=== PATIENT | female | born 1995 | race Two or more races ===

== ENCOUNTER 2021-12-15 19:53 | Emergency (ER) | payer SELFPAY ==
[~2021-12-15] VITALS: Ht 167.6 cm; Wt 68.2 kg
[2021-12-15 19:55] VITALS: BP 127/81
== END 2021-12-15 20:28 | disposition left against medical advice (07) ==
LOC: M ED 19:53
DX: Z53.21 Procedure and treatment not carried out due to patient leaving prior to being seen by health care provider (principal)

== ENCOUNTER → 2022-02-27 | Outpatient (CLI) | payer SELFPAY | LOC: M SOG 15:09 | PROVIDERS: ATTEND Orthopaedic Surgery Hand Surgery | DX: M25.531 Pain in right wrist (principal) ==

== ENCOUNTER 2022-06-13 10:34 | Emergency (ER) | payer OTHER, SELFPAY ==
[~2022-06-13] VITALS: Ht 167.6 cm; Wt 68.4 kg
[2022-06-13] MEDS ORDERED: CARB15DR37 (10:41)
[2022-06-13] MEDS ORDERED: OLOP5DRO17 (10:41)
[2022-06-13] MEDS ORDERED: FLUO40CA (10:41)
[2022-06-13] MEDS ORDERED: ONDA4TAB6 (10:41)
[2022-06-13] MEDS ORDERED: CEFD300C41 (10:41)
[2022-06-13] MEDS ORDERED: RIME75TA (10:41)
[2022-06-13] MEDS ORDERED: diphenhydrAMINE 50MG/ML VIAL IV ONE (13:20)
[2022-06-13] MEDS ORDERED: METOCLOPRAMIDE INJ 10MG/2ML VIAL IV ONE (13:20)
[2022-06-13] MEDS ORDERED: NS 1,000 ML IV ONE (14:35)
[2022-06-13] MEDS ORDERED: KETOROLAC 30 MG/ML 1ML VIAL IV ONE (14:35)
[2022-06-13 17:05] VITALS: BP 128/59
== END 2022-06-13 17:03 | disposition home or self-care (01) ==
LOC: M ED 10:34
DX: G43.909 Migraine, unspecified, not intractable, without status migrainosus (principal); F10.10 Alcohol abuse, uncomplicated; Z79.02 Long term (current) use of antithrombotics/antiplatelets; Z79.83 Long term (current) use of bisphosphonates; Z79.899 Other long term (current) drug therapy; Z91.011 Allergy to milk products; Z91.018 Allergy to other foods
CPT/HCPCS: 70450; 84702; 96361; 96374; 96375; 99284; J1200; J1885; J2765

== ENCOUNTER 2022-06-16 10:38 | Emergency (ER) | payer OTHER ==
[~2022-06-16] VITALS: Ht 167.6 cm; Wt 67.6 kg
[~2022-06-16 10:38] MED LIST: CARB15DR37; CEFD300C41; FLUO40CA; OLOP5DRO17; ONDA4TAB6; RIME75TA
[2022-06-16] MEDS ORDERED: diphenhydrAMINE 50MG/ML VIAL IV ONE (12:35)
[2022-06-16] MEDS ORDERED: ONDANSETRON 4MG 2ML VIAL IV ONE (12:35)
[2022-06-16] MEDS ORDERED: NS 1,000 ML IV ONE (12:35)
[2022-06-16] MEDS ORDERED: KETOROLAC 30 MG/ML 1ML VIAL IV ONE (12:35)
[2022-06-16 13:04] LABS: HEMATOCRIT 39.6 % (36.0-47.0); HEMOGLOBIN 13.5 g/dl (12.0-15.5); MEAN CORPUSCULAR HEMOGLOBIN 29.7 pg (27.0-33.0); MEAN CORPUSCULAR HGB CONC 34.1 g/dl (32.0-36.5); MEAN CORPUSCULAR VOLUME 87.2 fl (80.0-96.0); PLATELET COUNT, AUTOMATED 280 10^3/uL (150-450); RED BLOOD COUNT 4.54 10^6/uL (4.00-5.40)
[2022-06-16] MEDS ORDERED: TOPIRAMATE (TopAMAX) 25 MG TAB PO STA (14:23)
[2022-06-16] MEDS ORDERED: ONDA4TAB6 PO (15:03)
[2022-06-16 15:16] VITALS: BP 116/59
== END 2022-06-16 15:20 | disposition home or self-care (01) ==
LOC: M ED 10:38
DX: G43.909 Migraine, unspecified, not intractable, without status migrainosus (principal); F41.9 Anxiety disorder, unspecified; F32.A Depression, unspecified; F10.10 Alcohol abuse, uncomplicated; Z91.011 Allergy to milk products; Z91.018 Allergy to other foods; Z79.83 Long term (current) use of bisphosphonates; Z79.899 Other long term (current) drug therapy
CPT/HCPCS: 84702; 85027; 96361; 96374; 99284; J1200; J1885; J2405

== ENCOUNTER 2022-06-29 08:40 | Day surgery (SDC) | payer OTHER ==
[~2022-06-29] VITALS: Ht 167.6 cm; Wt 68.9 kg
[~2022-06-29 08:40] MED LIST changes: +ONDA4TAB6 PO; +TOPI-254 PO
[2022-06-29] MEDS ORDERED: LIDOCAINE W/EPINEPHRINE 1% 20ML VIAL XX ONE (09:20)
[2022-06-29] MEDS ORDERED: SODIUM BICARBONATE 8.4% INJ 50MEQ 50ML VIAL XX ONE (09:20)
[2022-06-29] MEDS ORDERED: BACITRACIN OINTMENT 30GM TUBE As Ordered ONE (11:03)
[2022-06-29 11:15] VITALS: BP 116/69
== END 2022-06-29 11:30 | disposition home or self-care (01) ==
LOC: M SDC 08:40
PROVIDERS: ATTEND Orthopaedic Surgery Hand Surgery
DX: M65.4 Radial styloid tenosynovitis [de Quervain] (principal); Z88.5 Allergy status to narcotic agent; E73.9 Lactose intolerance, unspecified; Z91.018 Allergy to other foods

== ENCOUNTER 2022-07-21 11:00 | Emergency (ER) | payer OTHER ==
[~2022-07-21] VITALS: Ht 165.1 cm; Wt 69.7 kg
[2022-07-21 11:43] LABS: HEMATOCRIT 40.7 % (36.0-47.0); HEMOGLOBIN 14.2 g/dl (12.0-15.5); MEAN CORPUSCULAR HEMOGLOBIN 30.5 pg (27.0-33.0); MEAN CORPUSCULAR HGB CONC 34.9 g/dl (32.0-36.5); MEAN CORPUSCULAR VOLUME 87.3 fl (80.0-96.0); PLATELET COUNT, AUTOMATED 271 10^3/uL (150-450); RED BLOOD COUNT 4.66 10^6/uL (4.00-5.40); WHITE BLOOD COUNT 4.6 10^3/uL (4.0-10.0)
[2022-07-21 12:18] LABS: HCG, SERUM QUALITATIVE NEGATIVE (NEGATIVE)
[2022-07-21 12:51] VITALS: BP 125/86; TEMP 97.6; O2SAT 98
== END 2022-07-21 12:53 | disposition home or self-care (01) ==
LOC: M ED 11:00
DX: N93.8 Other specified abnormal uterine and vaginal bleeding (principal); G43.909 Migraine, unspecified, not intractable, without status migrainosus; F41.9 Anxiety disorder, unspecified; Z88.5 Allergy status to narcotic agent; Z91.018 Allergy to other foods; Z91.011 Allergy to milk products; Z79.811 Long term (current) use of aromatase inhibitors; Z79.899 Other long term (current) drug therapy

== ENCOUNTER 2022-08-29 16:48 | Emergency (ER) | payer OTHER ==
[~2022-08-29] VITALS: Ht 167.6 cm; Wt 71.3 kg
[~2022-08-29 16:48] MED LIST changes: -ASPE4PAD TOP; -MEDR4PAK PO; -METH-1165 PO; -NAPR-837 PO; -OMEP-173 PO
[2022-08-29] MEDS ORDERED: KETOROLAC 60MG 2ML VIAL IM ONE (21:20)
[2022-08-29] MEDS ORDERED: diazePAM 10 MG TAB PO ONE (21:20)
[2022-08-29] MEDS ORDERED: LIDOCAINE 5% (LIDODERM) PATCH TD ONE (21:20)
[2022-08-29] MEDS ORDERED: traMADol 50 MG TAB PO ONE (22:25)
[2022-08-29] MEDS ORDERED: methylPREDNISolone 125MG 2ML VIAL IM ONE (22:25)
[2022-08-29] MEDS ORDERED: ASPE4PAD TOP (22:27)
[2022-08-29] MEDS ORDERED: MEDR4PAK PO (22:27)
[2022-08-29] MEDS ORDERED: OMEP-173 PO (22:27)
[2022-08-29] MEDS ORDERED: NAPR-837 PO (22:27)
[2022-08-29] MEDS ORDERED: METH-1165 PO (22:27)
[2022-08-29 22:33] VITALS: BP 126/63; TEMP 97.8; O2SAT 99
== END 2022-08-29 22:53 | disposition home or self-care (01) ==
LOC: M ED 16:48
DX: M54.50 Low back pain, unspecified (principal); R51.9 Headache, unspecified; Z91.011 Allergy to milk products; Z91.018 Allergy to other foods; Z88.5 Allergy status to narcotic agent; Z79.83 Long term (current) use of bisphosphonates; Z79.899 Other long term (current) drug therapy
CPT/HCPCS: 72131; 81001; 96372; 99283; J1885; J2930

== ENCOUNTER → 2022-08-29 | Outpatient (REF) ==
[~2022-08-29] MED LIST changes: +ASPE4PAD TOP; +MEDR4PAK PO; +METH-1165 PO; +NAPR-837 PO; +OMEP-173 PO
== END ==
LOC: M PLAIMG 10:14
PROVIDERS: ATTEND Internal Medicine
DX: R52 Pain, unspecified (principal)

== ENCOUNTER 2022-10-10 22:34 | Emergency (ER) | payer OTHER ==
[~2022-10-10] VITALS: Ht 167.6 cm; Wt 74.6 kg
[~2022-10-10 22:34] MED LIST changes: +ASPE4PAD TOP; +MEDR4PAK PO; +METH-1165 PO; +NAPR-837 PO; +OMEP-173 PO
[2022-10-11] MEDS ORDERED: BACT800T5 PO (01:14)
[2022-10-11] MEDS ORDERED: BACTRIM 160MG/800MG DS TAB PO ONE (01:15)
[2022-10-11 01:21] VITALS: BP 113/77; TEMP 97.3; O2SAT 99
== END 2022-10-11 01:27 | disposition home or self-care (01) ==
LOC: M ED 22:34
DX: S90.861A Insect bite (nonvenomous), right foot, initial encounter (principal); W57.XXXA Bitten or stung by nonvenomous insect and other nonvenomous arthropods, initial encounter; F41.9 Anxiety disorder, unspecified; F32.A Depression, unspecified; Z79.899 Other long term (current) drug therapy; Z88.5 Allergy status to narcotic agent; Z91.018 Allergy to other foods; E73.9 Lactose intolerance, unspecified

== ENCOUNTER 2022-10-24 16:46 | Emergency (ER) | payer OTHER ==
[~2022-10-24] VITALS: Ht 167.6 cm; Wt 73.6 kg
[2022-10-24 16:46] VITALS: BP 129/79; TEMP 98.5; O2SAT 100
[~2022-10-24 16:46] MED LIST changes: +BACT800T5 PO
== END 2022-10-24 19:45 | disposition left against medical advice (07) ==
LOC: M ED 16:46
DX: Z53.21 Procedure and treatment not carried out due to patient leaving prior to being seen by health care provider (principal)